=== PATIENT | male | born 1965 | race Caucasian/White ===

== ENCOUNTER 2022-10-01 06:19 | Day surgery (SDC) | payer BC, SELFPAY ==
--- NOTE | 2022-09-29 12:11 | HO.ANESPROP2 ---
HPI - Anesthesia Eval Consult details Narrative: 56yo M for Upper Endoscopy [facility] Past Medical History Medical History (Updated 09/29/22 @ 12:12 by Teresita Manzano NP) Barretts esophagus Surgical History Surgical History (Updated 09/29/22 @ 12:12 by Teresita Manzano NP) Hx of colonoscopy (~2016) Hx of esophagogastroduodenoscopy (~2016) Meds Allergies Allergy/AdvReac Type Severity Reaction Status Date / Time Seasonal Allergies Allergy Unknown Unknown Verified 09/29/22 12:13 Home Medications Medication Instructions Recorded Confirmed Last Taken Type nicotine (polacrilex) 4 mg gum mg PO 09/29/22 09/29/22 Unknown History pantoprazole 40 mg tablet,delayed 40 mg PO DAILY 09/29/22 09/29/22 Unknown History release Exam Exam Date and Time: September 29, 2022 1211 Assessment and Plan Assessment Anesthesia Assessment: Chart Reviewed
[2022-10-01 06:32] VITALS: BP 144/79; PULSE 57; RESP 16; TEMP 36.4; O2SAT 98; BMI 38.4
[2022-10-01] MEDS: Lactated Ringers 1,000 ML 100 ML IVCONT (06:49)
--- NOTE | 2022-10-01 07:16 | P.CONAN_ITS ---
[facility] Past Medical History Medical History Barretts esophagus Seasonal allergies Family History Family history of problems with anesthesia: No Surgical History Surgical History H/O foot surgery H/O umbilical hernia repair Hx of colonoscopy (~2016) Hx of esophagogastroduodenoscopy (~2016) History of Problems with Anesthesia: No Social History Social History Patient Tobacco Use Status: Former Tobacco user Quit Date: 2019 Tobacco use type: Smokeless Tobacco Years Smoked: 30 Smoked in Last 30 Days: No Use of substances other than those prescribed or required for medical reasons: No Are you DNR?: No Advance Directives: No Advance Directives Information Provided: Yes Meds Allergies Allergy/AdvReac Type Severity Reaction Status Date / Time No Known Allergies Allergy Verified 10/01/22 06:07 Active Medications: Current Medications Lactated Ringer's (Lr) 1,000 mls @ 100 mls/hr IVCONT .Q10H SAM Last Admin: 10/01/22 06:49 Dose: 100 mls/hr Home Medications Medication Instructions Recorded Confirmed Last Taken Type nicotine (polacrilex) 4 mg gum 4 mg PO DAILY 09/29/22 10/01/22 Unknown History pantoprazole 40 mg tablet,delayed 40 mg PO DAILY 09/29/22 10/01/22 Unknown History release Exam Exam Date and Time: October 01, 2022 0716 Height,Weight and Vital Signs: Height 5 ft 11 in Weight 124.738 kg Last Vital Signs Temp 97.6 F 10/01/22 06:32 Pulse 57 10/01/22 06:32 Resp 16 10/01/22 06:32 BP 144/79 H 10/01/22 06:32 Pulse Ox 98 10/01/22 06:32 O2 Del Method Room Air 10/01/22 06:32 Airway Mallampati Class: III TM Dist: >3cm Neck ROM: Full Heart: RRR Lungs: CTA Assessment and Plan Assessment Anesthesia Assessment: Anesthesia Plan Discussed Final Anesthetic Review Family History of Problems with Anesthesia: No History of Problems with Anesthesia: No NPO: Yes ASA Class: III Final Preanesthetic Review: Meds/Allgs Chart Reviewed, Consent Obtained/Reviewed and Anes Risks/Benef Reviewed Patient Risk: Low Procedure Risk: Low Anesthetic Plan Anesthetic Plan: MAC: Disposition: Standard PACU
--- NOTE | 2022-10-01 07:26 | P.HPSUR_ITS ---
Pre-Procedural Eval Section A Date of Service: 10/01/22 Section B Chief Complaint: Screening,Arteaga's esophagus without dysplasia Details of Present Illness: See H&P no changes Relevant Family History (Specify if Yes): No Relevant Social History: None Present Medications: see Short Stay Collaborative assessment Medical History: No relevant PMH History of Previous Operations: No relevant previous surgery Allergies: Allergies Allergy/AdvReac Type Severity Reaction Status Date / Time No Known Allergies Allergy Verified 10/01/22 06:07 Review of Systems Sugical H&P ROS: Negative: Constitution, Cardiovascular, Respiratory, Neurologi abilio, Psychiatric, Hem-Onc, Allergic/Immunologic, Gastrointestinal, Genitourinary, Musculoskeletal, Integumentary, Endocrine and Eyes/Ears/Nose/Throat Exam Surgical H&P Exam: Normal: HEENT, Normal: Heart, Normal: Lungs, Normal: Extremities, Normal: Abdomen, Normal: Skin and Normal: Neurological Plan Diagnosis/Plan: Unchanged I have reviewed the history and physical and performed a pertinent physical examination on my patient. No changes have occurred unless specified. Time Spent With Patient Time: Total time managing care of this patient today ____ minutes.
[2022-10-01 08:29] VITALS: BP 130/71; PULSE 59; RESP 16; TEMP 36.6; O2SAT 95
--- NOTE | 2022-10-01 08:30 | P.BOP_ITS ---
Brief Operative Note Date of Service: 10/01/22 Pre-op diagnosis: barretts screening Post-op diagnosis: same Procedure: egd colonoscopy Surgeon: Jluis Callahan Anesthesia: MAC Was an Business System Manager used for this Procedure?: No Estimated blood loss (mL): 2 Pathology: other Condition: stable
[2022-10-01 08:44] VITALS: BP 124/78; PULSE 56; RESP 18; TEMP 36.4; O2SAT 97
--- NOTE | 2022-10-01 08:44 | OP_ITS ---
DATE OF SERVICE: 10/01/2022 SURGEON: Jluis Callahan MD INDICATIONS: 1. Arteaga's esophagus. 2. Colon cancer screening. PREOPERATIVE DIAGNOSIS: POSTOPERATIVE DIAGNOSIS: PROCEDURE PERFORMED: ESTIMATED BLOOD LOSS: COMPLICATIONS: ANESTHESIA: Monitored anesthesia care. ASSISTANTS: SPECIMENS: PROCEDURES PERFORMED: 1. Upper endoscopy with biopsy. 2. Colonoscopy to the terminal ileum with snare polypectomy and biopsy. DESCRIPTION OF PROCEDURE: A history and physical were performed. The risks and benefits of the procedure were explained to the patient. Informed consent was obtained. The patient was placed in the left lateral decubitus position. The Olympus video gastroscope was introduced into the esophagus, stomach, and duodenum. Examination was performed, and the scope was removed. He was repositioned for colonoscopy. A digital rectal exam was performed and was found to be normal. The Olympus pediatric video colonoscope was introduced into the rectum and advanced to the cecum without difficulty. The cecum was identified by transillumination, palpation, and identification of the ileocecal valve. Examination was performed, and the scope was removed. He tolerated both procedures well and returned to recovery room in stable condition. FINDINGS: Upper endoscopy. 1. Esophagus. There was a 3 cm length of Arteaga esophagus without any raised lesions or ulcerated areas. Biopsies were obtained, beginning at the EG junction in all 4 quadrants, and extending proximally. 2. Stomach. The stomach was normal. There were several benign-appearing gastric polyps. 3. Duodenum. The bulb and second portion were normal. Colonoscopy: The terminal ileum was examined and appeared normal. The visualized colonic mucosa was normal. The quality of prep was good. In the cecum was a less than 5 mm polyp, which was removed with biopsy forceps. At 50 cm from the anal verge was a 6 mm polyp, which was removed with a hot snare and recovered via suction. No other polyps were identified. The quality of prep was good. Retroflexed examination showed some internal hemorrhoids. IMPRESSION: 1. Colon polyps. 2. Arteaga's esophagus. RECOMMENDATION: Follow up the biopsy results. MD LIZA Kaba/VÍCTOR / [id number]
--- NOTE | 2022-10-01 11:26 | HO.POSTANES ---
Post Anesthesia Evaluation Post Anesthesia Evaluation Date of Service: 10/01/22 Vital Signs: yVital Signs Temp Pulse Resp BP Pulse Ox O2 Del Method 10/01/22 08:44 97.6 F 56 18 124/78 97 Room Air 10/01/22 08:29 97.9 F 59 16 130/71 95 Room Air 10/01/22 06:32 97.6 F 57 16 144/79 H 98 Room Air Anesthesia: Monitored Mental Status: Awake Pain Control: Satisfactory Nausea/Vomiting: None (w) Hydration: Adequate Anesthesia-Related Issues: No Anes. Related Issues
== END 2022-10-01 09:10 | disposition home or self-care (01) ==
PROVIDERS: PCP Physician Assistant; Visit Provider Internal Medicine Gastroenterology
PROC: (CPT 45385; principal; 2022-10-01 07:30)
DX: Z12.11 Encounter for screening for malignant neoplasm of colon (principal); Z86.010 Personal history of colon polyps; D12.0 Benign neoplasm of cecum; D12.5 Benign neoplasm of sigmoid colon; K64.8 Other hemorrhoids; K22.70 Barrett's esophagus without dysplasia; K21.9 Gastro-esophageal reflux disease without esophagitis; K31.7 Polyp of stomach and duodenum; J30.2 Other seasonal allergic rhinitis; Z79.899 Other long term (current) drug therapy
CPT/HCPCS: 45385; 45380; 43239; 88305; J2250